=== PATIENT | male | born 1990 | race Caucasian/White ===

== ENCOUNTER 2018-08-25 08:47 | Emergency (ER) | payer MEDICAID, OTHER ==
[~2018-08-25] VITALS: Ht 180.3 cm; Wt 81.8 kg
[2018-08-25 09:01] VITALS: BP 136/86
[2018-08-25] MEDS ORDERED: pilocarpine 2% ophthalmic drops 15ml RIGHTEYE ONE (09:20)
[2018-08-25] MEDS ORDERED: ciprofloxacin 0.3% 2.5ml ophthalmic solution RIGHTEYE SCH (12:00)
== END 2018-08-25 10:12 | disposition home or self-care (01) ==
LOC: ER 08:48
DX: S05.01XA Injury of conjunctiva and corneal abrasion without foreign body, right eye, initial encounter (principal); X58.XXXA Exposure to other specified factors, initial encounter; Y93.89 Activity, other specified; Y92.89 Other specified places as the place of occurrence of the external cause; Y99.8 Other external cause status
CPT/HCPCS: 99283